=== PATIENT | female | born 1950 | race Caucasian/White ===

== ENCOUNTER 2024-12-12 15:26 | Emergency (ER) | payer MEDICARE, BC ==
[2024-12-12] MEDS: Sodium Chloride 0.9% 10 ML Syringe FLUSH ONE (15:40)
[2024-12-12] MEDS: Iopamidol 755 Mg/ML 100 ML Bottle IVPUSH ONE (15:40)
[2024-12-12] MEDS: Sodium Chloride 0.9% 100 ML IV SCH (15:40)
[2024-12-12 15:51] VITALS: PULSE 142
[2024-12-12 15:55] LABS: BASOPHILS PERCENT AUTO 0.5 % (0.0-1.0); EOSINOPHILS ABSOLUTE AUTO 0.1 K/mm3 (0.0-0.4); EOSINOPHILS PERCENT AUTO 1.6 % (0.0-6.0); HEMATOCRIT 40.2 % (37.0-47.0); HEMOGLOBIN 13.1 gm/dl (12.0-16.0); IMMATURE GRAN ABSOLUTE AUTO 0.03 K/mm3 (0.00-0.05); IMMATURE GRAN PERCENT AUTO 0.5 % (0.0-0.4); LYMPHOCYTES ABSOLUTE AUTO 1.9 K/mm3 (1.0-4.8); LYMPHOCYTES PERCENT AUTO 32.6 % (24.0-44.0); MEAN CORPUSCULAR HEMOGLOBIN 30.5 pg (28.0-32.0); MEAN CORPUSCULAR HGB CONC 32.6 g/dl (32.0-36.0); MEAN CORPUSCULAR VOLUME 93.7 fl (83.0-99.0); MEAN PLATELET VOLUME 10.6 fl (9.4-12.3); MONOCYTES ABSOLUTE AUTO 0.4 K/mm3 (0.0-0.8); MONOCYTES PERCENT AUTO 7.6 % (0.0-8.0); NEUTROPHILS ABSOLUTE AUTO 3.2 K/mm3 (1.8-7.7); NEUTROPHILS PERCENT AUTO 57.2 % (41.0-71.0); PLATELET COUNT,PLT 196 K/mm3 (150-400); RED BLOOD CELL COUNT 4.29 M/mm3 (4.10-5.30); WHITE BLOOD CELL COUNT,WBC 5.67 K/mm3 (3.9-11.3)
[2024-12-12] MEDS: Diltiazem 25 MG/5 ML SDV IVPUSH ONE (15:57)
[2024-12-12] MEDS: Tenecteplase 50 MG Kit IV ONE (16:07)
[2024-12-12] MEDS: Tenecteplase 50 MG Kit ONE (16:09)
[2024-12-12] MEDS: Diltiazem 125 MG in Sodium Chloride 0.9% 100 ML IV SCH (16:10)
[2024-12-12 16:12] LABS: INR 1.11; PROTHROMBIN TIME 11.7 SECONDS (9.7-12.0)
[2024-12-12 16:13] LABS: PTT,PARTIAL THROMBOPLSTIN TIME 28.4 SECONDS (21.7-31.4)
[2024-12-12 16:19] LABS: A/G RATIO 1.3 (1-2); ALBUMIN 3.5 g/dl (3.4-5.0); ANION GAP 15.4 (5-15); BILIRUBIN TOTAL 0.6 mg/dL (0.2-1.0); BUN/CREATININE RATIO 21.8 (14-18); CALCIUM 9.2 mg/dL (8.5-10.1); CREATININE 1.1 mg/dL (0.55-1.02); EST CRCL DRUG DOSING (CG) 45.47 mL/min; POTASSIUM,K 3.4 mEq/L (3.5-5.1); PROTEIN TOTAL,TP 6.2 g/dl (6.4-8.2)
[2024-12-12] MEDS: Sodium Chloride 0.9% 500 ML IV ONE (16:35)
[2024-12-12 16:45] LABS: TSH 2.473 uIU/mL (0.358-3.74)
[2024-12-12] MEDS: Labetalol 100 MG/20 ML MDV IVPUSH ONE (17:27)
[2024-12-12 18:19] VITALS: BP 160/96
== END 2024-12-12 16:39 ==
LOC: JD.ED 15:26
DX: I63.511 Cerebral infarction due to unspecified occlusion or stenosis of right middle cerebral artery (principal); I48.91 Unspecified atrial fibrillation; Z96.653 Presence of artificial knee joint, bilateral; Z96.642 Presence of left artificial hip joint; Z79.899 Other long term (current) drug therapy
CPT/HCPCS: 36415; 70450; 70496; 70498; 80053; 84443; 84484; 85025; 85610; 85730; 93005; 96365; 96375; 96376; 99285; J3101; J3490; J7030; Q9967; 93010